=== PATIENT | female | born 1970 | race Two or more races ===

== ENCOUNTER 2019-08-20 05:55 | Day surgery (SDC) | payer OTHER ==
[2019-08-20] MEDS ORDERED: NEXIUM 24HR20 MG PO (08:00)
== END 2019-08-20 09:05 | disposition home or self-care (01) ==
LOC: AMB-ENDOS 05:55
DX: K29.50 Unspecified chronic gastritis without bleeding (principal); K44.9 Diaphragmatic hernia without obstruction or gangrene